=== PATIENT | female | born 1940 | race Hispanic/Latino ===

== ENCOUNTER 2022-04-02 18:16 | Emergency (ER) | payer OTHER ==
--- OUTSIDE RECORDS SUMMARY | 2022-04-02 18:22 | XMS REPORT | Continuity of Care Document ---
:1940 [facility] Organization [facility] t Address [address] [place] [address] Care Team Providers Name Role Phone Chelsey Attending Clinician Unavailable Alberto OSPINA Attending Clinician Unavailable Chance Attending Clinician Unavailable BRYN CHOE Attending Clinician Unavailable DONNA Attending Clinician Unavailable Chelsey Admitting Clinician Unavailable SONIYA STAHL Admitting Clinician Unavailable Chance Admitting Clinician Unavailable JOVANI ROGEL Admitting Clinician Unavailable YOKO FOX Admitting Clinician Unavailable DONNA Admitting Clinician Unavailable Payers Payer Name Policy Type Policy Number Effective Date Expiration Date Kevin oswald [place]: [id number] 1994 [employer] 00:00:00 [place]: [id number] 1994 [employer] 00:00:00 - RHC - FQHC Problems Condition Condition Condition Status Onset Resolution Last Treating Co mments Source Name Details Category Date Date Treatment Clinician Date Eye Eye Problem Active 2019-0 [place] disorder Disorder 6-23 da screening Screening 00:00: [facility] 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 [facility] Diabetes Diabetes Problem Active 2019-0 [place] [facility] mellitus Mellitus 6-18 da 00:[facility]: [facility] Hyperlipid Hyperlipid Problem Active 2019-0 M [facility] emia emia 6-18 da 00:00: [facility] Regular Regular Problem Active 2019-0 [place] astigmatis Astigmatis 6-18 da m m 00:00: [facility] Presbyopia Presbyopia Problem Active 2019-0 M [facility] 6-18 da 00:00: [facility] Essential Essential Problem Active 2019-0 [facility] hypertensi Hypertensi 6-18 da on on 00:00: [facility] Heart Heart Problem Active 2019-0 [place] disease Disease 6-18 da 00:00: [facility] 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 Pseudophak 6-18 da ia ia 00:00: [facility] Allergies, Adverse Reactions, Alerts Allergy Allergy Status Severity Reaction(s) Onset Inactive Treating Comm ents Source Name Type Date Date Clinician IODINATE Allergy Active [place] to da CONTRAST substanc Medica l MEDIA e Group Social History Smoking Status Start Date Stop Date Source Former [facility] Medications Ordered Filled Start Stop Current Ordering Indication Dosage Frequency Signature Comments Components Source Medication Medication Date Date Medication? Clinician (SIG) Name Name amlodipine amlodipine No amlodipine [place] 2.5 mg 2.5 mg 2.5 mg da tablet tablet tablet [facility] atorvastati atorvastati No atorvastat [place] n 40 mg n 40 mg in 40 mg da tablet tablet tablet [facility] ezetimibe ezetimibe No ezetimibe [place] 10 mg 10 mg 10 mg da tablet tablet tablet [facility] furosemide furosemide No furosemide [place] 40 mg 40 mg 40 mg da tablet tablet tablet [facility] isosorbide isosorbide No isosorbide [place] mononitrate mononitrate mononitrat da er 60 mg er 60 mg e er 60 mg E piscop tb24 tb24 tb24 [facility] losartan losartan No losartan [place] 100 100 100 da mg-hydrochl mg-hydrochl mg-hydroch [facility] orothiazide orothiazide lorothiazi al 25 mg 25 mg de 25 mg Health tablet tablet tablet Outreac h Program metformin metformin No metformin [place] hydrochlori hydrochlori hydrochlor da de 500 mg de 500 mg sudeep 500 mg [facility] tabs tabs tabs [facility] metoprolol metoprolol No metoprolol [place] tartrate 50 tartrate 50 tartrate da mg tablet mg tablet 50 mg [facility] 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 tablet [facility] nitroglycer nitroglycer No nitroglyce [place] in 0.4 mg in 0.4 mg rin 0.4 mg da subl subl subl [facility] pioglitazon pioglitazon No pioglitazo [place] e hcl 45 mg e hcl 45 mg ne hcl 45 da tabs tabs mg tabs [facility] proair hfa proair hfa No proair hfa [place] 108 (90 108 (90 108 (90 da base) base) base) [facility] mcg/act mcg/act mcg/act al [facility] aspirin 81 aspirin 81 No 1 Q1D aspirin 81 [place] mg mg mg da tablet,myla tablet,myla tablet,del Medical yed release yed release ayed G roup Take 1 Take 1 release tablet tablet Take 1 every day every day tablet by oral by oral every day route. route. by oral route. atorvastati atorvastati No atorvastat [place] n 40 mg n 40 mg in 40 mg da tablet TAKE tablet TAKE tablet Medical 1 TABLET BY 1 TABLET BY TAKE 1 Group MOUTH EVERY MOUTH EVERY TABLET BY DAY NEEDS DAY NEEDS MOUTH TO SEE TO SEE EVERY DAY DOCTOR DOCTOR NEEDS TO SEE DOCTOR baclofen 10 baclofen 10 No baclofen [place] mg tablet mg tablet 10 mg da TAKE 1 TAKE 1 tablet Medical TABLET TABLET TAKE 1 Group TWICE A DAY TWICE A DAY TABLET BY ORAL BY ORAL TWICE A ROUTE ROUTE DAY BY NEEDED. NEEDED. ORAL ROUTE NEEDED. cranberry cranberry No cranberry [place] 500 mg 500 mg 500 mg da capsule capsule capsule Medica l Take by Take by Take by Group oral route. oral route. oral route. Dialyvite Dialyvite No Dialyvite [place] 100 mg-1 mg 100 mg-1 mg 100 mg-1 da tablet TAKE tablet TAKE mg tablet Medical 1 TABLET BY 1 TABLET BY TAKE 1 Group MOUTH EVERY MOUTH EVERY TABLET BY DAY DAY MOUTH EVERY DAY Eliquis 5 Eliquis 5 No Eliquis 5 [place] mg tablet mg tablet mg tablet da TAKE 1 TAKE 1 TAKE 1 Medical TABLET BY TABLET BY TABLET BY Group MOUTH EVERY MOUTH EVERY MOUTH 12 HOURS 12 HOURS EVERY 12 HOURS ezetimibe ezetimibe No ezetimibe [place] 10 mg 10 mg 10 mg da tablet TAKE tablet TAKE tablet Medical 1 TABLET BY 1 TABLET BY TAKE 1 Group MOUTH EVERY MOUTH EVERY TABLET BY DAY DAY MOUTH EVERY DAY furosemide furosemide No furosemide [place] 40 mg 40 mg 40 mg da tablet TAKE tablet TAKE tablet Medical 2 TABLETS 2 TABLETS TAKE 2 Ramon up BY MOUTH BY MOUTH TABLETS BY EVERY DAY EVERY DAY MOUTH EVERY DAY glimepiride glimepiride No glimepirid [place] 1 mg tablet 1 mg tablet e 1 mg da TAKE 1 TAKE 1 tablet Medical TABLET BY TABLET BY TAKE 1 Ramon up MOUTH EVERY MOUTH EVERY TABLET BY DAY DAY MOUTH EVERY DAY isosorbide isosorbide No isosorbide [place] mononitrate mononitrate mononitrat da ER 60 mg ER 60 mg e ER 60 mg M edical tablet,exte tablet,exte tablet,ext Group nded nded ended release 24 release 24 release 24 hr TAKE 1 hr TAKE 1 hr TAKE 1 TABLET BY TABLET BY TABLET BY MOUTH EVERY MOUTH EVERY MOUTH DAY DAY EVERY DAY warfarin 1 warfarin 1 No warfarin 1 [place] mg tablet mg tablet mg tablet da [facility] Januvia 50 Januvia 50 No Januvia 50 [place] mg tablet mg tablet mg tablet da TAKE 1 TAKE 1 TAKE 1 Medical TABLET BY TABLET BY TABLET BY Group MOUTH EVERY MOUTH EVERY MOUTH DAY DAY EVERY DAY losartan 25 losartan 25 No losartan [place] mg tablet mg tablet 25 mg da TAKE 1 TAKE 1 tablet Medical TABLET BY TABLET BY TAKE 1 Ramon up MOUTH EVERY MOUTH EVERY TABLET BY DAY DAY MOUTH EVERY DAY metoprolol metoprolol No metoprolol [place] tartrate tartrate tartrate da 100 mg 100 mg 100 mg Medical tablet TAKE tablet TAKE tablet Group 1 TABLET BY 1 TABLET BY TAKE 1 MOUTH TWICE MOUTH TWICE TABLET BY A DAY A DAY MOUTH TWICE A DAY nifedipine nifedipine No nifedipine [place] ER 30 mg ER 30 mg ER 30 mg da tablet,exte tablet,exte tablet,ext Medical nded nded ended Group release release release TAKE 1 TAKE 1 TAKE 1 TABLET BY TABLET BY TABLET BY MOUTH EVERY MOUTH EVERY MOUTH DAY DAY EVERY DAY nitroglycer nitroglycer No nitroglyce [place] in 0.4 mg in 0.4 mg rin 0.4 mg da sublingual sublingual sublingual Medical tablet tablet tablet Group Place [address] 1 tablet by tablet by tablet by sublingual sublingual sublingual route as route as route as needed. needed. needed. spironolact spironolact No spironolac [place] one 25 mg one 25 mg tone 25 mg da tablet TAKE tablet TAKE tablet Medical 1 TABLET BY 1 TABLET BY TAKE 1 Group MOUTH EVERY MOUTH EVERY TABLET BY DAY DAY MOUTH EVERY DAY Voltaren Voltaren No Voltaren [facility] Arthritis Arthritis Arthritis da [facility] warfarin 3 warfarin 3 No warfarin 3 [place] mg tablet mg tablet mg tablet da [facility] Immunizations Ordered Immunization Filled Immunization Date Status Commen ts Source Name Name influenza, influenza, 2021-02-08 Completed [facility] injectable, injectable, 00:00:00 [facility] Gr[facility] p quadrivalent quadrivalent influenza, influenza, 2020-02-16 Completed [facility] injectable, injectable, 00:00:00 Medical Grou p quadrivalent quadrivalent influenza, high dose influenza, high 2018-06-03 Completed [facility] seasonal dose seasonal 12:57:00 Medical [place] up Vital Signs Vital Name Observation Time Observation Value Comments Source BP Diastolic 2021-12-19 00:00:00 78 mm[Hg] [facility] Height 2021-12-19 00:00:00 61 [in_i] [facility] BMI (Body Mass 2021-12-19 00:00:00 28.9 kg/m2 [facility] Index) Group BP Systolic 2021-12-19 00:00:00 159 mm[Hg] [facility] Body Weight 2021-12-19 00:00:00 2449 [oz_av] [facility] BP Diastolic 2021-11-27 00:00:00 64 mm[Hg] [facility] Height 2021-11-27 00:00:00 61 [in_i] [facility] BMI (Body Mass 2021-11-27 00:00:00 28.4 kg/m2 [facility]) Group BP Systolic 2021-11-27 00:00:00 138 mm[Hg] [facility] Body Weight 2021-11-27 00:00:00 2408 [oz_av] [facility] BP Diastolic 2021-11-12 00:00:00 69 mm[Hg] [facility] Height 2021-11-12 00:00:00 61 [in_i] [facility] BMI (Body Mass 2021-11-12 00:00:00 28.3 kg/m2 [facility]) Group BP Systolic 2021-11-12 00:00:00 173 mm[Hg] [facility] Body Weight 2021-11-12 00:00:00 2400 [oz_av] [facility] BP Diastolic 2021-05-08 00:00:00 66 mm[Hg] [facility] Height 2021-05-08 00:00:00 61 [in_i] [facility] BMI (Body Mass 2021-05-08 00:00:00 28.4 kg/m2 [facility]) Group BP Systolic 2021-05-08 00:00:00 170 mm[Hg] [facility] Body Weight 2021-05-08 00:00:00 2407 [oz_av] [facility] BP Diastolic 2020-11-14 00:00:00 70 mm[Hg] [facility] Height 2020-11-14 00:00:00 61 [in_i] [facility] BMI (Body Mass 2020-11-14 00:00:00 27.3 kg/m2 [facility]) Group BP Systolic 2020-11-14 00:00:00 159 mm[Hg] [facility] Body Weight 2020-11-14 00:00:00 2313 [oz_av] [facility] Height 2020-10-09 00:00:00 61 [in_i] [facility] BMI (Body Mass 2020-10-09 00:00:00 27.1 kg/m2 [facility]) Group BP Systolic 2020-10-09 00:00:00 132 mm[Hg] [facility] Body Weight 2020-10-09 00:00:00 2292 [oz_av] [facility] BP Diastolic 2020-10-09 00:00:00 66 mm[Hg] [facility] BP Diastolic 2020-09-06 00:00:00 59 mm[Hg] [facility] Height 2020-09-06 00:00:00 61 [in_i] [facility] BMI (Body Mass 2020-09-06 00:00:00 28.5 kg/m2 [facility]) Group BP Systolic 2020-09-06 00:00:00 140 mm[Hg] [facility] Body Weight 2020-09-06 00:00:00 2417 [oz_av] [facility] BP Diastolic 2020 00:00:00 74 mm[Hg] [facility] Height 2020 00:00:00 61 [in_i] [facility] BMI (Body Mass 2020 00:00:00 28.4 kg/m2 [facility]) Group BP Systolic 2020 00:00:00 136 mm[Hg] [facility] Body Weight 2020 00:00:00 2403 [oz_av] [facility] BP Diastolic 2020-05-07 00:00:00 79 mm[Hg] [facility] Height 2020-05-07 00:00:00 61 [in_i] [facility] BMI (Body Mass 2020-05-07 00:00:00 28.4 kg/m2 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 BP Systolic 2020-05-07 00:00:00 177 mm[Hg] [facility] Body Weight 2020-05-07 00:00:00 2406 [oz_av] [facility] Height 2020-04-12 00:00:00 61 [in_i] [facility] BMI (Body Mass 2020-04-12 00:00:00 28 kg/m2 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 Body Weight 2020-04-12 00:00:00 2368 [oz_av] [facility] Height 2020-02-23 00:00:00 61 [in_i] [facility] BMI (Body Mass 2020-02-23 00:00:00 27.6 kg/m2 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 Body Weight 2020-02-23 00:00:00 2336 [oz_av] [facility] Height 2020-01-24 00:00:00 61 [in_i] [facility] BMI (Body Mass 2020-01-24 00:00:00 31.2 kg/m2 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 Body Weight 2020-01-24 00:00:00 2640 [oz_av] [facility] Height 2019-12-15 00:00:00 61 [in_i] [facility] BMI (Body Mass 2019-12-15 00:00:00 31.2 kg/m2 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 Body Weight 2019-12-15 00:00:00 2640 [oz_av] [facility] Height 2019-11-01 00:00:00 61 [in_i] [facility] BMI (Body Mass 2019-11-01 00:00:00 31.2 kg/m2 [facility] Body Weight 2019-11-01 00:00:00 165 [lb_av] [facility] BP Diastolic 2018-11-16 00:00:00 71 mm[Hg] [facility] Height 2018-11-16 00:00:00 62 [in_i] [facility] BMI (Body Mass 2018-11-16 00:00:00 29.4 kg/m2 [facility] 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) Group BP Systolic 2018-11-16 00:00:00 144 mm[Hg] [facility] Body Weight 2018-11-16 00:00:00 2576 [oz_av] [facility] BP Diastolic 2018-10-26 00:00:00 60 mm[Hg] [facility] Height 2018-10-26 00:00:00 62 [in_i] [facility] BMI (Body Mass 2018-10-26 00:00:00 29.1 kg/m2 [facility] Index) Group BP Systolic 2018-10-26 00:00:00 149 mm[Hg] [facility] Body Weight 2018-10-26 00:00:00 2544 [oz_av] [facility] BP Diastolic 2018-08-17 00:00:00 86 mm[Hg] [facility] Height 2018-08-17 00:00:00 62 [in_i] [facility] BMI (Body Mass 2018-08-17 00:00:00 30.1 kg/m2 [facility] 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) Group BP Systolic 2018-08-17 00:00:00 173 mm[Hg] [facility] Body Weight 2018-08-17 00:00:00 2633 [oz_av] [facility] BP Diastolic 2018-06-03 00:00:00 78 mm[Hg] [facility] Height 2018-06-03 00:00:00 62 [in_i] [facility] BMI (Body Mass 2018-06-03 00:00:00 29.5 kg/m2 [facility] Index) Group BP Systolic 2018-06-03 00:00:00 146 mm[Hg] [facility] Body Weight 2018-06-03 00:00:00 2580 [oz_av] [facility] Procedures Procedure Date / Time Performing Clinician Source Performed Procedure 2020-03-11 00:00:00 [facility], chest 2018-08-17 00:00:00 [facility] Cardiac [facility] Procedure [facility] Partial Hysterectomy [facility] Bilateral Extraction of [facility] Cholecystectomy [facility] Femoral Endarterectomy [facility] Carotid Endarterectomy [facility] Cabg Vein Four [facility] Plan of Care Planned Activity Planned Date Details Comments Source Future Scheduled Test 2022-04-10 hemoglobin A1c, QN, [facility] 00:00:00 blood [code = Group hemoglobin A1c, QN, blood] Future Scheduled Test 2022-04-10 CMP, serum or plasma [facility] 00:00:00 [code = CMP, serum Group or plasma] Future Scheduled Test 2022-04-10 lipid panel, serum [facility] 00:00:00 [code = lipid panel, Group serum] Future Appointment 2022-04-21 Trice Kauffman [address] [facility] 09:30:00 [facility] [address]; , [place] [address] Encounters Start End Encounter Admission Attending Care Care Encounter Source Date/Time Date/Time Type Type Clinicians Facility Department ID 2022-03-30 2022-03-30 Outpatient Zuniga_F [facility] [id number] [facility] 00:00:00 00:00:00 1120 [facility] 2022-02-22 2022-02-22 Outpatient [facility]_F [facility] [id number] [place] 00:00:00 00:00:00 1015 [facility] 2022-01-18 2022-01-18 Outpatient [facility]_F [facility] [id number] [place] 00:00:00 00:00:00 0910 [facility] 2021-12-19 2021-12-19 Tr[place] Zuniga_F MMG [place] - [id number] [place] 00:00:00 00:00:00 Juan Carlos Rodriguez 0811 Bekah Denney MD: [address] [place] [phone] , Ph. 2021-12-18 2021-12-18 Outpatient [facility]iga_F [facility] [id number] [place] 00:00:00 00:00:00 0810 da [facility] 2021-12-11 2021-12-11 Outpatient Zuniga_F MM[facility] MM[facility] [id number] [place] 00:00:00 00:00:00 0803 nir [facility] 2021-11-27 2021-11-27 Tr[place] Zuniga_[place] MM[place] - [id number] [place] 00:00:00 00:00:00 Juan Carlos Rodriguez 0720 Bekah Denney MD: [address] [place] [phone] , Ph. 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 2021-05-08 2021-05-08 Trice Zuniga_F MMG [place] - [id number] 21 [place] 00:00:00 00:00:00 Juan Carlos Rodriguez 1229 Bekah Denney MD: [address] [place] [phone] , Ph. 2021-02-14 2021-02-14 Outpatient [facility]_F [facility] [id number] [place] 03:26:00 03:26:00 1007 nir [facility] 2020-11-142020-11-14 Tr[place] Zuniga_[place] MMG [place] - [id number] [place] 00:00:00 00:00:00 Juan Carlos Rodriguez 0707 Bekah Denney Medical MD: [address] [place] [address] [address], [place] [address] , Ph. 2020-10-09 2020-10-09 Trice Lamaruniga_F MM[place] - [id number] 21 [place] 00:00:00 00:00:00 Juan Carlos Rodriguez 06 Bekah Denney Medical MD: [address] [place] [address] [address], [place] [address] , Ph. 2020-09-18 2020-09-23 Inpatient DENIS [facility] MED [id number] [facility] 00:54:00 15:48:00 Alberto SANTIZO 2020-09-17 2020-09-17 Outpatient Shield MMG MMG [id number] [place] 11:42:00 11:42:00 0510 [facility] 2020-09-06 2020-09-06 Trice Zuniga_F MMG [place] - [id number] [place] 00:00:00 00:00:00 Juan Carlos Rodriguez 0429 Bekah Denney MD: [address] [place] [address] [address], [place] [address] , Ph. 2020-08-21 2020-08-24 Inpatient E SILVERIO [facility] MED [id number] [facility] 22:16:00 18:05:00 BRYN MENDOZA 2020-07-25 2020-07-25 Outpatient [facility]_F [facility] MMG [id number] [place] 03:45:00 03:45:00 0317 [facility] 2020 2020 Trice Zuniga_[place] MM[place] - [id number] [place] 00:00:00 00:00:00 Juan Carlos Rodriguez 0303 Bekah Denney MD: [address] [place] [address] [address], [place] [address] , Ph. 2020-06-07 2020-06-07 Outpatient [facility]iga_F [facility] MMG [id number] [place] 09:58:00 09:58:00 0128 [facility] 2020-05-07 2020-05-07 Tr[place] Zuniga_F MM[place] - [id number] 20 [place] 00:00:00 00:00:00 Juan Carlos Rodriguez 1228 Bekah Denney MD: [address] [facility] [address], [place] [address] , Ph. 2020-04-12 2020-04-12 Trice Zuniga_[place] MM[place] - [id number] 20 [place] 00:00:00 00:00:00 Juan Carlos Rodriguez 1203 Bekah Denney MD: [address] [address], [place] [address] , Ph. 2020-04-11 2020-04-11 Outpatient Zuniga_F [facility] MMG [id number] [place] 04:39:00 04:39:00 1202 [facility] 2020-03-28 2020-03-28 Outpatient Zuniga_F [facility] MM[facility] [id number] [place] 02:38:00 02:38:00 1118 [facility] 2020-03-22 2020-03-22 Outpatient Zuniga_F [facility] MMG [id number] [place] 01:05:00 01:05:00 1112 [facility] 2020-03-06 2020-03-06 Outpatient Zuniga_F [facility] MMG [id number] [place] 11:13:00 11:13:00 1027 [facility] 2020-02-23 2020-02-23 Trice Zuniga_F MM[place] - [id number] [place] 00:00:00 00:00:00 Juan Carlos Rodriguez 1015 Bekah Denney MD: [address] [address], [place] [address] , Ph. 2020-02-16 2020-02-16 Outpatient [facility]_F [facility] MMG [id number] [place] 01:05:00 01:05:00 1008 [facility] 2020-01-26 2020-01-26 Outpatient Z[facility]iga_F [facility] MMG [id number] [place] 04:46:00 04:46:00 0917 [facility] 2020-01-24 2020-01-24 Tr[place] Zuniga_[place] MM[place] - [id number] 20 [place] 00:00:00 00:00:00 Juan Carlos Rodriguez 0915 Bekah Denney Medical MD: [address] [place] [address] [address], [place] [address] , Ph. 2019-12-31 2020-01-14 Inpatient [facility] MED [id number] [facility] 22:32:00 14:35:00 BRYN MENDOZA 2020-01-07 2020-01-07 Outpatient [facility]_F [facility] MMG [id number] [place] 03:37:00 03:37:00 0829 [facility] 2019-12-15 2019-12-15 Tr[place] Zuniga_[place] - [id number] 20 [place] 00:00:00 00:00:00 Juan Carlos Rodriguez 0806 Bekah Denney MD: [address] [facility] [address], [place] [address] , Ph. 2019-12-13 2019-12-13 Outpatient Zuniga_F [facility] MMG [id number] [place] 03:48:00 03:48:00 0804 [facility] 2019-11-01 2019-11-01 Outpatient JORGE_NORA BLACK [id number] [place] 01:17:00 01:17:00 SCILLA 0623 da [facility] 2019-11-01 2019-11-01 Kelly BLACK [place] - [id number] [place] 00:00:00 00:00:00 Luisito Somers MD: [address], [facility] [place], [place] [facility] [address] [facility] , Ph. h ([phone]) Program 2019-10-27 2019-10-27 Outpatient [facility] [id number] [place] 04:54:00 04:54:00 SCILLA 0618 [facility] 2018-11-16 2018-11-16 Tr[place] [facility] [place] - [id number] [place] 00:00:00 00:00:00 Juan Carlos Rodriguez 0709 Bekah Denney Medical MD: [address] [place] [address] [address], [place] [address] , Ph. 2018-10-26 2018-10-26 Tr[place] [facility] [place] - [id number] 9 [place] 00:00:00 00:00:00 Juan Carlos Rodriguez 0618 Bekah Denney MD: [address] [place] [address] [address], [place] [address] , Ph. 2018-08-17 2018-08-17 Tr[place] [facility] [place] - [id number] 9 [place] 00:00:00 00:00:00 Juan Carlos Rodriguez 0409 Bekah Denney MD: [address] [facility] [address], [place] [address] , Ph. 2018-06-03 2018-06-03 Trice [facility] [place] - [id number] 9 [place] 00:00:00 00:00:00 Juan Carlos Rodriguez 0124 Bekah Denney MD: [address] [place] [address] [address], [place] [address] , Ph. Results Test Description Test Time Test Comments Results Result Comments Source Creatine kinase [Enzymatic activity/volume] in Serum o r Plasma 2020-09-17 11:00:00 Test Item Value Reference Range Interpretation Comme nts creatine kinase (test code = creatine kinase) 100 U/L 20-180 [facility]Mass/volume] in [id number] 11:00:00 Test Item Value Reference Range Interpretation Comments cardiac troponin I (test code = 1.34 NG/mL 0.0-0.5 H cardiac troponin I) [facility] [Mass/volume] in Serum or Plasma 2020-09-17 11:00:00 Test Item Value Reference Range Interpretation Comments Creatine kinase.MB [Mass/volume] in 7.5 NG/mL 0.0-3.6 H Serum or Plasma by Immunoassay (test code = 32817-3) [facility] [Mass/volume] in Serum or [id number] 11:00:00 Test Item Value Reference Range Interpretation Comments myoglobin (test code = myoglobin) 124 NG/mL 25-58 [facility] RNA [Presence] in Respiratory specimen by JESSICA with probe [id number] 10:52:[id number] [facility] Differential panel - [id number] 08:49:00 Test Item Value Reference Range Interpretation Comments white blood count (test code = 10.5 K/uL 4.0-11.5 white blood count) red blood count (test code = red 3.84 M/uL 3.80-5.20 blood count) hemoglobin (test code = 11.5 g/dL 10.5-15.7 hemoglobin) hematocrit (test code = 35.2 % 34.0-50.0 hematocrit) MCV [Entitic volume] (test code = 91.7 fL 86-100 42653-5) mean corpuscular hemoglobin (test 29.9 pg 26.2-33.4 code = mean corpuscular hemoglobin) mean corpuscular HGB conc (test 32.7 g/dL 30-34 code = mean corpuscular HGB conc) red cell distribution width (test 13.0 % 12.0-15.5 code = red cell distribution width) platelet count (test code = 108 K/uL 165-450 L platelet count) mean platelet volume (test code = 12.3 fL 9.4-12.6 mean platelet volume) Segmented neutrophils/100 83.1 % 44.4-80.1 H leukocytes in Blood (test code = 80350-7) Immature granulocytes [#/volume] 0.1 K/uL 0.0-0.03 H in Blood (test code = 17607-8) lymphocyte% (test code = 7.2 % 10.0-50.0 L lymphocyte%) mono % (test code = mono %) 8.7 % 3.6-12.0 eos % (test code = eos %) 0.2 % 0.0-5.4 Basophils/100 leukocytes in 0.2 % 0.1-1.2 Unspecified specimen (test code = 14779-8) Band form neutrophils [#/volume] 8.72 K/uL 1.56-6.13 H in Blood (test code = 22425-6) Lymphocytes [#/volume] in 0.8 K/uL 1.18-3.74 L Unspecified specimen by Automated count (test code = 71918-6) mono # (test code = mono #) 0.91 K/uL 0.24-0.86 H eos # (test code = eos #) 0.02 K/uL 0.04-0.36 L basophil # (test code = basophil 0.02 K/uL 0.01-0.08 #) NRBC% (test code = NRBC%) 0 /100 WBC 0-0.2 NRBC# (test code = NRBC#) 0 K/uL [facility], method unspecified - [id number] 08:49:00NeutrophilsBandLymphocyteAtypical LymphMonocyteEosinophilBasophilMetamyelocyteMyelocytePromyelocyteBlastsNucleated Red Blood CellAbs Neutrophil Count (Man)Abs Lymph Count (Man)Abs Monocyte Count (Man)Abs Eosinophil Count (Man)Abs Basophil Count (Man)Platelet Estimate [facility]PT/[id number] 08:49:00 Test Item Value Reference Range Interpretation Comments prothrombin time (test code = 12.5 seconds 10.3-12.3 H prothrombin time) INR in Blood by Coagulation 1.18 assay (test code = 87386-1) [facility] [id number] 08:49:00 Test Item Value Reference Range Interpretation Comments INR in Blood by Coagulation 35.5 seconds 22.5-37.0 assay (test code = 24832-2) [facility]Com[facility] 2000 [facility] - Serum or Plasma 2020-09-17 08:49:00 Test Item Value Reference Range Interpretation Comments Glucose [Mass/volume] in Serum or 199 mg/dL 82-115 H Plasma (test code = 2345-7) Urea nitrogen [Mass/volume] in 62 mg/dL 8-23 H Serum or Plasma (test code = 3094-0) osmolality calculated,serum (test 297 mOsm/kg 280-300 code = osmolality calculated,serum) creatinine (test code = 1.7 mg/dL 0.50-0.90 H creatinine) glomerular filtration rate (test 29.07 L code = glomerular filtration rate) Urea nitrogen/Creatinine [Mass 36.5 12-20 H Ratio] in Serum or Plasma (test code = 3097-3) sodium level (test code = sodium 137 mmol/L 135-145 level) potassium level (test code = 3.8 mmol/L 3.5-5.2 potassium level) chloride level (test code = 100 mmol/L 98-108 chloride level) CO2 (test code = CO2) 25 mmol/L 21-32 anion gap (test code = anion gap) 15.8 mEq/L 12-20 calcium level (test code = 9.6 mg/dL 8.8-10.2 calcium level) total protein (test code = total 7.5 g/dL 6.6-8.7 protein) albumin (test code = albumin) 4.2 g/dL 3.5-5.2 globulin (test code = globulin) 3.3 gm/dL A/G ratio (test code = A/G ratio) 1.3 >1.0 bilirubin,total (test code = 1.8 mg/dL 0.0-1.2 H bilirubin,total) AST/SGOT (test code = AST/SGOT) 50 U/L 15-32 H Alanine aminotransferase 36 U/L 0-33 H [Enzymatic activity/volume] in Serum or Plasma (test code = 1742-6) Alkaline phosphatase [Enzymatic 120 U/L 35-105 H activity/volume] in Serum or Plasma (test code = 6768-6) [facility] HospitalCreatine kinase [Enzymatic activity/volume] in Serum or [id number] 08:49:00 Test Item Value Reference Range Interpretation Comments creatine kinase (test code = creatine 120 U/L 20-180 kinase) [facility] HospitalNatriuretic peptide.B prohormone N-Terminal [Mass/volume] in Serum or [id number] 08:49:00 Test Item Value Reference Range Interpretation Comments N-term pro natriuretic peptide 09386 pg/mL 0-450 H (test code = N-term pro natriuretic peptide) [facility] HospitalTroponin I.cardiac [Mass/volume] in [id number] 08:49:00 Test Item Value Reference Range Interpretation Comments cardiac troponin I (test code = 0.87 NG/mL 0.0-0.5 H cardiac troponin I) [facility] HospitalCreatine kinase.MB [Mass/volume] in Serum or Plasma 2020-09-17 08:49:00 Test Item Value Reference Range Interpretation Comments Creatine kinase.MB [Mass/volume] in 6.7 NG/mL 0.0-3.6 H Serum or Plasma by Immunoassay (test code = 63717-5) [facility] [employer] Differential panel - [id number] 06:10:00 Test Item Value Reference Range Interpretation Comments white blood count (test code = 5.0 K/uL 4.0-11.5 white blood count) red blood count (test code = red 3.98 M/uL 3.80-5.20 blood count) Hemoglobin [Mass/volume] in Blood 11.8 g/dL 10.5-15.7 (test code = 718-7) hematocrit (test code = hematocrit) 37.2 % 34.0-50.0 Erythrocyte mean corpuscular volume 93.5 fL 78-98 [Entitic volume] (test code = 06916-6) Erythrocyte mean corpuscular 29.6 pg 26.2-33.4 hemoglobin [Entitic mass] (test code = 82468-6) mean corpuscular HGB conc (test 31.7 g/dL 31.5-36.2 code = mean corpuscular HGB conc) red cell distribution width (test 12.7 % 11.5-15.5 code = red cell distribution width) Platelets [#/volume] in Blood (test 119 K/uL 137-338 L code = 12795-3) Platelet mean volume [Entitic 10.4 fL 8.4-11.8 volume] in Blood (test code = 01043-2) Neutrophils.band form/100 54.7 % 44.4-80.1 leukocytes in Blood (test code = 84824-1) Lymphocytes/100 leukocytes in Body 32.1 % 10.0-50.0 fluid (test code = 77027-3) Monocytes/100 leukocytes in Blood 10.8 % 3.6-12.0 by Automated count (test code = 5905-5) Eosinophils/100 leukocytes in Blood 1.4 % 0.0-5.4 by Automated count (test code = 713-8) Basophils/100 leukocytes in 1.0 % 0.0-0.79 H Unspecified specimen (test code = 51603-0) [facility], [id number] 06:10:00 NeutrophilsBandLymphocyteAtypical LymphMonocyteMetamyelocyteMyelocyteNucleated Red Blood CellPlatelet EstimatePlatelet MorphologyHypochromasiaPoikilocytosis [facility] HospitalHemoglobin A1c [Mass/volume] in [id number] 06:10:00 Test Item Value Reference Range Interpretation Comments Hemoglobin A1c in Blood (test code = 8.3 % 4.0-6.0 H 16919-0) [facility]Com[facility] 2000 panel - Serum or Plasma 2018-10-29 06:10:00 Test Item Value Reference Range Interpretation Comments Glucose [Mass/volume] in Serum or 151 mg/dL 82-115 H Plasma (test code = 2345-7) Urea nitrogen [Mass/volume] in 46 mg/dL 8-23 H Serum or Plasma (test code = 3094-0) Osmolality of Serum or Plasma 294 280-300 (test code = 2692-2) creatinine (test code = 1.6 mg/dL 0.50-0.90 H creatinine) glomerular filtration rate (test 31.34 L code = glomerular filtration rate) Urea nitrogen/Creatinine [Mass 28.8 12-20 H Ratio] in Serum or Plasma (test code = 3097-3) sodium level (test code = sodium 140 mmol/L 135-145 level) potassium level (test code = 4.6 mmol/L 3.5-5.2 potassium level) chloride level (test code = 102 mmol/L 98-108 chloride level) CO2 (test code = CO2) 24 mmol/L 21-32 anion gap (test code = anion gap) 18.6 mEq/L 12-20 calcium level (test code = calcium 9.7 mg/dL 8.8-10.2 level) total protein (test code = total 6.9 g/dL 6.6-8.7 protein) albumin (test code = albumin) 4.1 g/dL 3.5-5.2 globulin (test code = globulin) 2.8 gm/dL A/G ratio (test code = A/G ratio) 1.5 >1.0 bilirubin,total (test code = <0.3 0.0-1.2 bilirubin,total) AST/SGOT (test code = AST/SGOT) 19 U/L 15-32 Alanine aminotransferase 12 U/L 0-33 [Enzymatic activity/volume] in Serum or Plasma (test code = 1742-6) Alkaline phosphatase [Enzymatic 78 U/L 35-105 activity/volume] in Serum or Plasma (test code = 6768-6) [facility] HospitalPhosphate [Mass/volume] in Serum or [id number] 06:10:00 Test Item Value Reference Range Interpretation Comments phosphorous level (test code = 4.7 mg/dL 2.5-4.5 H phosphorous level) [facility] HospitalLipid 1996 panel - Serum or [id number] 06:10:00 Test Item Value Reference Range Interpretation Comments cholesterol level (test code = 142 mg/dL 150-200 L cholesterol level) triglycerides level (test code = 112 mg/dL <150 triglycerides level) HDL cholesterol (test code = HDL 57 mg/dL >65 L cholesterol) LDL cholesterol direct (test code = 73 mg/dL <100 LDL cholesterol direct) cholesterol risk ratio (test code = 2.491 cholesterol risk ratio) [facility]PT/[id number] 06:10:00 Test Item Value Reference Range Interpretation Comments prothrombin time (test code = 17.6 seconds 10.3-12.3 H prothrombin time) INR in Blood by Coagulation 1.63 assay (test code = 05924-7) [facility] HospitalMicroalbumin [Mass/volume] in [id number] 06:10:00 Test Item Value Reference Range Interpretation Comments microalbumin random (test code = 854.3 mg/L 0-20 H microalbumin random) [facility] [employer] Differential panel - [id number] 01:36:00 Test Item Value Reference Range Interpretation Comments white blood count (test code = 7.4 K/uL 4.0-11.5 white blood count) red blood count (test code = red 3.66 M/uL 3.80-5.20 L blood count) Hemoglobin [Mass/volume] in Blood 10.9 g/dL 10.5-15.7 (test code = 718-7) hematocrit (test code = hematocrit) 33.9 % 34.0-50.0 L Erythrocyte mean corpuscular volume 92.6 fL 78-98 [Entitic volume] (test code = 17118-5) Erythrocyte mean corpuscular 29.9 pg 26.2-33.4 hemoglobin [Entitic mass] (test code = 33852-9) mean corpuscular HGB conc (test 32.3 g/dL 31.5-36.2 code = mean corpuscular HGB conc) red cell distribution width (test 12.7 % 11.5-15.5 code = red cell distribution width) Platelets [#/volume] in Blood (test 107 K/uL 137-338 L code = 90232-6) Platelet mean volume [Entitic 12.2 fL 8.4-11.8 H volume] in Blood (test code = 70340-1) Neutrophils.band form/100 74.7 % 44.4-80.1 leukocytes in Blood (test code = 84830-8) Lymphocytes/100 leukocytes in Body 14.6 % 10.0-50.0 fluid (test code = 97657-9) Monocytes/100 leukocytes in Blood 10.4 % 3.6-12.04 by Automated count (test code = 5905-5) Eosinophils/100 leukocytes in Blood 0.0 % 0.0-5.41 by Automated count (test code = 713-8) Basophils/100 leukocytes in Blood 0.3 % 0.0-0.79 by Automated count (test code = 706-2) [facility]different[facility], [id number] 01:36:00 NeutrophilsBandLymphocyteAtypical LymphMonocyteEosinophilBasophilPlatelet EstimatePlatelet MorphologyHypochromasiaPoikilocytosisMicrocytosisDifferential comment-PMaSouth Sunflower County HospitalPT/[id number] 01:36:00 Test Item Value Reference Range Interpretation Comments prothrombin time (test code = 19.8 seconds 10.3-12.3 H prothrombin time) INR in Blood by Coagulation 1.84 assay (test code = 69268-4) [facility] HospitalBasi metabolic 2000 panel - Serum or [id number] 01:36:00 Test Item Value Reference Range Interpretation Comments Glucose [Mass/volume] in Serum or 160 mg/dL 82-115 H Plasma (test code = 2345-7) Urea nitrogen [Mass/volume] in 45 mg/dL 8-23 H Serum or Plasma (test code = 3094-0) Osmolality of Serum or Plasma 295 280-300 (test code = 2692-2) creatinine (test code = 1.5 mg/dL 0.50-0.90 H creatinine) glomerular filtration rate (test 33.76 L code = glomerular filtration rate) Urea nitrogen/Creatinine [Mass 30.0 12-20 H Ratio] in Serum or Plasma (test code = 3097-3) sodium level (test code = sodium 140 mmol/L 135-145 level) potassium level (test code = 4.0 mmol/L 3.5-5.2 potassium level) chloride level (test code = 99 mmol/L 98-108 chloride level) CO2 (test code = CO2) 30 mmol/L 21-32 anion gap (test code = anion gap) 15.0 mEq/L 12-20 calcium level (test code = calcium 9.2 mg/dL 8.8-10.2 level) [facility]PT/[id number] 01:03:00 Test Item Value Reference Range Interpretation Comments prothrombin time (test code = 15.0 seconds 10.3-12.3 H prothrombin time) INR in Blood by Coagulation 1.38 assay (test code = 19882-4) [facility] HospitalCB [facility] Differential panel - [id number] 01:03:00 Test Item Value Reference Range Interpretation Comments white blood count (test code = 7.2 K/uL 4.0-11.5 white blood count) red blood count (test code = red 3.72 M/uL 3.80-5.20 L blood count) Hemoglobin [Mass/volume] in Blood 11.1 g/dL 10.5-15.7 (test code = 718-7) hematocrit (test code = hematocrit) 34.2 % 34.0-50.0 Erythrocyte mean corpuscular volume 92.0 fL 78-98 [Entitic volume] (test code = 89215-5) Erythrocyte mean corpuscular 30.0 pg 26.2-33.4 hemoglobin [Entitic mass] (test code = 62382-7) mean corpuscular HGB conc (test 32.6 g/dL 31.5-36.2 code = mean corpuscular HGB conc) red cell distribution width (test 13.1 % 11.5-15.5 code = red cell distribution width) Platelets [#/volume] in Blood (test 106 K/uL 137-338 L code = 00762-7) Platelet mean volume [Entitic 10.3 fL 8.4-11.8 volume] in Blood (test code = 23435-2) Neutrophils.band form/100 81.0 % 44.4-80.1 H leukocytes in Blood (test code = 69386-6) Lymphocytes/100 leukocytes in Body 11.3 % 10.0-50.0 fluid (test code = 65515-3) Monocytes/100 leukocytes in Blood 7.4 % 3.6-12.04 by Automated count (test code = 5905-5) Eosinophils/100 leukocytes in Blood 0.0 % 0.0-5.41 by Automated count (test code = 713-8) Basophils/100 leukocytes in Blood 0.3 % 0.0-0.79 by Automated count (test code = 706-2) [facility]different[facility], [id number] 01:03:00 NeutrophilsBandLymphocyteAtypical LymphMonocyteEosinophilBasophilPlatelet EstimatePlatelet MorphologyHypochromasiaPoikilocytosisMicrocytosisDifferential comment-[facility] metabolic 2000 panel - Serum or Plasma 2018-08-05 01:03:00 Test Item Value Reference Range Interpretation Comments Glucose [Mass/volume] in Serum or 167 mg/dL 82-115 H Plasma (test code = 2345-7) Urea nitrogen [Mass/volume] in 40 mg/dL 8-23 H Serum or Plasma (test code = 3094-0) Osmolality of Serum or Plasma 282 280-300 (test code = 2692-2) creatinine (test code = 1.5 mg/dL 0.50-0.90 H creatinine) glomerular filtration rate (test 33.76 L code = glomerular filtration rate) Urea nitrogen/Creatinine [Mass 26.7 12-20 H Ratio] in Serum or Plasma (test code = 3097-3) sodium level (test code = sodium 134 mmol/L 135-145 L level) potassium level (test code = 4.3 mmol/L 3.5-5.2 potassium level) chloride level (test code = 99 mmol/L 98-108 chloride level) CO2 (test code = CO2) 22 mmol/L 21-32 anion gap (test code = anion gap) 17.3 mEq/L 12-20 calcium level (test code = calcium 8.8 mg/dL 8.8-10.2 level) [facility] [employer] Differential panel - [id number] 02:00:00 Test Item Value Reference Range Interpretation Comments white blood count (test code = 3.8 K/uL 4.0-11.5 L white blood count) red blood count (test code = red 3.60 M/uL 3.80-5.20 L blood count) Hemoglobin [Mass/volume] in Blood 11.0 g/dL 10.5-15.7 (test code = 718-7) hematocrit (test code = hematocrit) 33.2 % 34.0-50.0 L Erythrocyte mean corpuscular volume 92.4 fL 78-98 [Entitic volume] (test code = 68625-7) Erythrocyte mean corpuscular 30.7 pg 26.2-33.4 hemoglobin [Entitic mass] (test code = 10211-0) mean corpuscular HGB conc (test 33.2 g/dL 31.5-36.2 code = mean corpuscular HGB conc) red cell distribution width (test 12.8 % 11.5-15.5 code = red cell distribution width) Platelets [#/volume] in Blood (test 91 K/uL 137-338 L code = 21414-8) Platelet mean volume [Entitic 10.6 fL 8.4-11.8 volume] in Blood (test code = 30931-3) Neutrophils.band form/100 82.5 % 44.4-80.1 H leukocytes in Blood (test code = 31118-0) Lymphocytes/100 leukocytes in Body 14.5 % 10.0-50.0 fluid (test code = 24348-2) Monocytes/100 leukocytes in Blood 2.7 % 3.6-12.04 L by Automated count (test code = 5905-5) Eosinophils/100 leukocytes in Blood 0.0 % 0.0-5.41 by Automated count (test code = 713-8) Basophils/100 leukocytes in Blood 0.3 % 0.0-0.79 by Automated count (test code = 706-2) [facility]different[facility], [id number] 02:00:00 NeutrophilsBandLymphocyteAtypical LymphMonocyteEosinophilBasophilPlatelet EstimatePlatelet MorphologyHypochromasiaPoikilocytosisMicrocytosisDifferential comment-PMataAnderson Regional Medical CenterPT/[id number] 02:00:00 Test Item Value Reference Range Interpretation Comments prothrombin time (test code = 13.0 seconds 10.3-12.3 H prothrombin time) INR in Blood by Coagulation 1.19 assay (test code = 47590-8) [facility] HospitalLactate [Mass/volume] in Serum or [id number] 02:00:00 Test Item Value Reference Range Interpretation Comments lactic acid (test code = lactic 1.15 mmol/L 0.5-2.2 acid) [facility] Hospitallprocal2019-03-27 02:00:00 Test Item Value Reference Range Interpretation Comments Procalcitonin [Mass/volume] in 0.1 NG/mL 0.0-0.8 Serum or Plasma (test code = 30784-0) [facility] HospitalNatriuretic peptide.B prohormone N-Terminal [Mass/volume] in Serum or [id number] 02:00:00 Test Item Value Reference Range Interpretation Comments N-term pro natriuretic peptide 5819 pg/mL 0-450 H (test code = N-term pro natriuretic peptide) [facility] HospitalBasic metabolic 2000 panel - Serum or [id number] 02:00:00 Test Item Value Reference Range Interpretation Comments Glucose [Mass/volume] in Serum or 238 mg/dL 82-115 H Plasma (test code = 2345-7) Urea nitrogen [Mass/volume] in 32 mg/dL 8-23 H Serum or Plasma (test code = 3094-0) Osmolality of Serum or Plasma 287 280-300 (test code = 2692-2) creatinine (test code = 1.3 mg/dL 0.50-0.90 H creatinine) glomerular filtration rate (test 39.82 L code = glomerular filtration rate) Urea nitrogen/Creatinine [Mass 24.6 12-20 H Ratio] in Serum or Plasma (test code = 3097-3) sodium level (test code = sodium 136 mmol/L 135-145 level) potassium level (test code = 3.9 mmol/L 3.5-5.2 potassium level) chloride level (test code = 97 mmol/L 98-108 L chloride level) CO2 (test code = CO2) 20 mmol/L 21-32 L anion gap (test code = anion gap) 22.9 mEq/L 12-20 H calcium level (test code = calcium 8.5 mg/dL 8.8-10.2 L level) [facility] HospitalBacteria identified in Sputum by [id number] 09:41:00ResultsBacteria Spt CultSelect Specialty Hospitallprocal2019-03-26 08:00:00 Test Item Value Reference Range Interpretation Comments Procalcitonin [Mass/volume] in 0.1 NG/mL 0.0-0.8 Serum or Plasma (test code = 60673-2) [facility] Hospitalmflu [id number] 06:05:00ResultsSelect Specialty HospitalCBC W Auto Differential panel - [id number] 05:55:00 Test Item Value Reference Range Interpretation Comments white blood count (test code = 5.0 K/uL 4.0-11.5 white blood count) red blood count (test code = red 4.15 M/uL 3.80-5.20 blood count) Hemoglobin [Mass/volume] in Blood 12.5 g/dL 10.5-15.7 (test code = 718-7) hematocrit (test code = hematocrit) 38.7 % 34.0-50.0 Erythrocyte mean corpuscular volume 93.1 fL 78-98 [Entitic volume] (test code = 23865-9) Erythrocyte mean corpuscular 30.2 pg 26.2-33.4 hemoglobin [Entitic mass] (test code = 23419-8) mean corpuscular HGB conc (test 32.4 g/dL 31.5-36.2 code = mean corpuscular HGB conc) red cell distribution width (test 13.1 % 11.5-15.5 code = red cell distribution width) Platelets [#/volume] in Blood (test 112 K/uL 137-338 L code = 65500-5) Platelet mean volume [Entitic 12.0 fL 8.4-11.8 H volume] in Blood (test code = 09301-4) Neutrophils.band form/100 72.9 % 44.4-80.1 leukocytes in Blood (test code = 33772-7) Lymphocytes/100 leukocytes in Body 16.0 % 10.0-50.0 fluid (test code = 69787-3) Monocytes/100 leukocytes in Blood 10.4 % 3.6-12.04 by Automated count (test code = 5905-5) Eosinophils/100 leukocytes in Blood 0.1 % 0.0-5.41 by Automated count (test code = 713-8) Basophils/100 leukocytes in Blood 0.6 % 0.0-0.79 by Automated count (test code = 706-2) [facility]different[facility], [id number] 05:55:00 NeutrophilsBandLymphocyteAtypical LymphMonocyteEosinophilBasophilPlatelet EstimatePlatelet MorphologyHypochromasiaPoikilocytosisMicrocytosisDifferential comment-PMatagorda Medical GroupUrinalysis complete panel - [id number] 05:55:00 Test Item Value Reference Range Interpretation Comments Color of Urine by Auto (test code yellow = 97202-4) Appearance of Urine (test code = clear clear 5767-9) Glucose [Mass/volume] in Urine =1+ (100 negative H (test code = 2350-7) bilirubin, urine (test code = negative negative bilirubin, urine) ketone, urine (test code = small, 15 negative H ketone, urine) Specific gravity of Urine by 1.025 1.003-1.030 Automated test strip (test code = 93800-8) Hemoglobin [Presence] in Urine by small negative H Test strip (test code = 5794-3) pH of Urine (test code = 2756-5) 7.000 5-9 protein urine (UA) (test code = =2+ (100 negative H protein urine (UA)) Urobilinogen [Presence] in Urine 1.0 E.U./dL 0.2-1.0 (test code = 39108-0) Nitrite [Presence] in Urine by negative negative Test strip (test code = 5802-4) urine leukocyte esterase (test negative negative code = urine leukocyte esterase) Erythrocytes [Presence] in Urine =0-3 0-5 (test code = 69498-2) WBC, urine (test code = WBC, =5-9 0-5 H urine) Epithelial cells [Presence] in =0-5 0-5 Urine sediment by Light microscopy (test code = 71070-0) bacteria, urine (test code = trace none detect bacteria, urine) Casts [#/area] in Urine sediment none seen none detect by Automated count (test code = 76503-3) urine culture added? (test code = no urine culture added?) [facility]Com[facility] 2000 [facility] - Serum or Plasma 2018-08-03 05:55:00 Test Item Value Reference Range Interpretation Comments glucose (test code = glucose) 202 mg/dL 82-115 H Urea nitrogen [Mass/volume] in 35 mg/dL 8-23 H Serum or Plasma (test code = 3094-0) Osmolality of Serum or Plasma 286 280-300 (test code = 2692-2) creatinine (test code = 1.5 mg/dL 0.50-0.90 H creatinine) glomerular filtration rate (test 33.76 L code = glomerular filtration rate) Urea nitrogen/Creatinine [Mass 23.3 12-20 H Ratio] in Serum or Plasma (test code = 3097-3) sodium level (test code = sodium 136 mmol/L 135-145 level) Potassium [Moles/volume] in Body 4.0 mmol/L 3.5-5.2 fluid (test code = 2821-7) chloride level (test code = 94 mmol/L 98-108 L chloride level) CO2 (test code = CO2) 27 mmol/L 21-32 anion gap (test code = anion gap) 19.0 mEq/L 12-20 calcium level (test code = calcium 9.4 mg/dL 8.8-10.2 level) total protein (test code = total 7.6 g/dL 6.6-8.7 protein) albumin (test code = albumin) 4.1 g/dL 3.5-5.2 globulin (test code = globulin) 3.5 gm/dL A/G ratio (test code = A/G ratio) 1.2 >1.0 bilirubin,total (test code = 0.7 mg/dL 0.0-1.2 bilirubin,total) AST/SGOT (test code = AST/SGOT) 28 U/L 15-32 Alanine aminotransferase 14 U/L 0-33 [Enzymatic activity/volume] in Serum or Plasma (test code = 1742-6) Alkaline phosphatase [Enzymatic 77 U/L 35-105 activity/volume] in Serum or Plasma (test code = 6768-6) [facility] HospitalLipase [Enzymatic activity/volume] in Serum or Plasma 2018-08-03 05:55:00 Test Item Value Reference Range Interpretation Comments Lipase [Enzymatic activity/volume] in 36 U/L 13-60 Serum or Plasma (test code = 3040-3) [facility] HospitalPT/[id number] 05:55:00 Test Item Value Reference Range Interpretation Comments prothrombin time (test code = 13.5 seconds 10.3-12.3 H prothrombin time) INR in Blood by Coagulation 1.24 assay (test code = 15020-6) [facility] Hospitalpartial thromboplastin [id number] 05:55:00 Test Item Value Reference Range Interpretation Comments INR in Blood by Coagulation 33.8 seconds 22.5-37.0 assay (test code = 69499-9) [facility] HospitalCreatine kinase [Enzymatic activity/volume] in Serum or [id number] 05:55:00 Test Item Value Reference Range Interpretation Comments creatine kinase (test code = creatine 88 U/L 20-180 kinase) [facility] HospitalTroponin I.cardiac [Mass/volume] in [id number] 05:55:00 Test Item Value Reference Range Interpretation Comments cardiac troponin I (test code = cardiac <0.30 0.0-0.5 troponin I) [facility] HospitalCreatine kinase.MB [Mass/volume] in Serum or Plasma 2018-08-03 05:55:00 Test Item Value Reference Range Interpretation Comments mass creatinine kinase-mb (test 1.5 NG/mL 0.0-3.6 code = mass creatinine kinase-mb) [facility] HospitalPT/[id number] 08:03:00 Test Item Value Reference Range Interpretation Comments prothrombin time (test code = 16.7 seconds 10.3-12.3 H prothrombin time) INR in Blood by Coagulation 1.54 assay (test code = 52128-9) [facility]
[2022-04-02] MEDS ORDERED: ASPIRIN 81 MG CHEWABLE TABLET ONE (18:58)
[2022-04-02] MEDS ORDERED: NITROGLYCERIN 0.4 MG/TAB SL ONE (18:58)
[2022-04-02 19:17] LABS: Absolute Lymphocytes (CBC) 1.5 K/uL (0.7-4.9); Lymphocytes % 22.3 % (15.3-44.8); MCV 89.8 fL (80-100); MPV 9.6 fL (7.6-11.3); RBC Red Blood Cell Count 3.34 M/uL (3.86-4.86)
[2022-04-02 19:38] LABS: Potassium 4.8 mmol/L (3.5-5.1)
--- NOTE | 2022-04-02 19:51 | RAD REPORT ---
EXAM DESCRIPTION: RAD - Chest Single View - 04/02/2022 7:37 pm CLINICAL HISTORY: CHEST PAIN COMPARISON: Chest Pa And Lat (2 Views) dated 01/25/2020 FINDINGS: Lines: Dialysis catheter is been removed. Lungs: Decreased lung volumes with increased prominence of the pulmonary vasculature. Pleural: No significant pleural effusions or pneumothorax. Cardiac: Cardiomegaly. Sternotomy. Mediastinum: Within normal limits. Bones: No acute fractures. Other: None IMPRESSION: Vascular congestion without alveolar edema. No consolidative airspace disease.
--- NOTE | 2022-04-02 19:52 | ER ---
Nurse's Notes [facility] Name: Myra Cox Age: 81 yrs Sex: Female : 1940 Arrival Date: 04/02/2022 Time: 18:18 Bed 16 Private MD: Diagnosis: Subsequent non-ST elevation (NSTEMI) myocardial infarction;Chest pain, unspecified Presentation: 04/02 18:30 Chief complaint: Patient states: Chest tightness since 03/21. Coronavirus screen: [facility] Vaccine status: Patient reports receiving the 2nd dose of the covid vaccine. Client denies travel out of the [place] in the last 14 days. At this time, the client does not indicate any symptoms associated with coronavirus-19. Ebola Screen: Patient denies travel to an Ebola-affected area in the 21 days before illness onset. Initial Sepsis Screen: Does the patient meet any 2 criteria? No. Patient's initial sepsis screen is negative. Does the patient have a suspected source of infection? No. Patient's initial sepsis screen is negative. Risk Assessment: Do you want to hurt yourself or someone else? Patient reports no desire to harm self or others. Onset of symptoms was March 21, 2022. 18:30 Method Of Arrival: Wheelchair ll1 18:30 Acuity: JAZMIN 2 ll1 Triage Assessment: 18:31 General: Appears uncomfortable, Behavior is cooperative, appropriate for age. Pain: 1 Complains of pain in chest Pain currently is 3 out of 10 on a pain scale. Cardiovascular: Reports chest pain, fatigue. Historical: - Allergies: 18:30 No Known Drug Allergies; ll1 - PMHx: 18:30 Hypertensive disorder; Coronary atherosclerosis; ll1 - PSHx: 18:30 3 open heart SX; ll1 - Immunization history:: Client reports receiving the 2nd dose of the Covid vaccine. - Social history:: Smoking status: Patient denies any tobacco usage or history of. - Family history:: not pertinent. Screenin:46 Abuse screen: Denies threats or abuse. Nutritional screening: No deficits noted. ke1 Tuberculosis screening: No symptoms or risk factors identified. Fall Risk None identified. Assessment: 19:46 Pain: Pain does not radiate. ke1 19:47 Pain: Pain began 03/21/22. ke1 21:16 Reassessment: Patient states feeling better. Patient states symptoms have improved. ke1 22:47 Reassessment: report given to ESTHER RN at [facility]. ke1 Vital Signs: 18:30 BP 162 / 75; Pulse 70; Resp 18; Pain 3/10; ll1 19:00 BP 155 / 59; Pulse 71; Resp 19; Temp 98; Pulse Ox 100% on R/A; ke1 19:05 Pain 8/10; ke1 19:05 BP 160 / 50; Pulse 68; Resp 18; Pulse Ox 100% ; ke1 19:10 Pain 2/10; ke1 19:10 BP 161 / 58; Pulse 68; Resp 17; Pulse Ox 100% on R/A; ke1 20:41 BP 158 / 123; Pulse 67; Resp 20; Pulse Ox 100% on R/A; ke1 21:17 BP 162 / 55; Pulse 67; Resp 18; Pulse Ox 100% on R/A; Pain 0/10; ke1 21:20 Weight 71.67 kg; Height 5 ft. 1 in. (154.94 cm); ke1 04/03 00:27 BP 140 / 52; Pulse 64; Resp 19; Temp 98.1; Pulse Ox 100% on R/A; Pain 0/10; ke1 04/02 21:20 Body Mass Index 29.85 (71.67 kg, 154.94 cm) ke1 ED Course: 04/02 18:18 Patient arrived in ED. mr 18:27 James Davis MD is Attending Physician. rt 18:30 Arm band placed on Patient placed in an exam room, on a stretcher. ll1 18:31 Triage completed. ll1 18:57 Inserted saline lock: 20 gauge in right antecubital area, using aseptic technique. jd3 Blood collected. 19:09 Kirsten Pinedo, RN is Primary Nurse. db 19:12 Attending Physician role handed off by James Davis MD rn 19:12 Tera Dickinson MD is Attending Physician. rn 19:39 XRAY Chest (1 view) In Process Unspecified. EDMS 19:46 Bed in low position. Call light in reach. Side rails up X 1. ke1 19:46 No provider procedures requiring assistance completed. Patient maintains SpO2 ke1 saturation greater than 95% on room air. 19:52 Gene Luciano MD is Hospitalizing Provider. rn 20:17 Initiated transfer to [facility], spoke with Khushi. 21:00 Client placed on continuous cardiac and pulse oximetry monitoring. NIBP monitoring ke1 applied. customer field representative on. Pulse ox on. NIBP on. 21:52 Pt accepted for transfer by Dr. Nathan Hunt \T\ 2141 per Khushi Bolton. wm 23:11 [facility] for transport, estimated ETA 0100. wm 23:15 [facility] called stated change of ETA to be 30mins. 04/03 00:29 Patient transferred, IV remains in place. ke1 Administered Medications: 04/02 19:00 Drug: Aspirin Chewable Tablet 324 mg Route: PO; kc6 19:00 Drug: Nitroglycerin 0.4 mg Route: Sublingual; db 19:05 Drug: Nitroglycerin 0.4 mg Route: Sublingual; ke1 19:05 Follow up: Pain 8/10 Adult; Response: Pain is unchanged, physician notified ke1 19:10 Drug: Nitroglycerin 0.4 mg Route: Sublingual; ke1 19:10 Follow up: Pain 2/10 Adult; Response: Pain is decreased ke1 20:46 Drug: Metoprolol TARTRATE 50 mg Route: PO; ke1 21:26 Drug: Lovenox (enoxaparin) 1 mg/kg Route: Sub-Q; Site: left lower abdomen; ke1 Medication: 04/03 00:29 VIS not applicable for this client. ke1 Outcome: 04/02 19:52 Decision to Hospitalize by Provider. rn 20:09 ER care complete, transfer ordered by . rn 04/03 00:28 Transferred by ground EMS ke1 Instructed on the need for admit. 00:29 Condition: stable ke1 00:30 Patient left the ED. ke1 Signatures: Dispatcher [employer] EDVA JiangKasey Roman, MD MD rn Martinez, Eric em1 Diony Kramer RN RN Heriberto Lemons RN RN Tri Tse Valencia Maciel RN RN ke1 Mariluz Kaur RN RN kc6 Kirsten Pinedo RN RN db [place], Ryan, MD MD rt Corrections: (The following items were deleted from the chart) 04/02 20:30 20:17 Initiated transfer to [facility], spoke with Khushi em1 wm
--- NOTE | 2022-04-02 19:52 | EDPHYS ---
Physician Documentation [facility] Name: Myra Cox Age: 81 yrs Sex: Female : 1940 Arrival Date: 04/02/2022 Time: 18:18 Bed 16 Private MD: ED Physician Tera Dickinson HPI: 04/02 19:07 This 81 yrs old Female presents to ER via Wheelchair with complaints of Chest rt Tightness, Back Pain. 19:07 The patient or guardian reports chest pain that is located primarily in the substernal rt area. Onset: 1 week(s) ago. The pain does not radiate. Associated signs and symptoms: Pertinent positives: Generalized weakness. The chest pain is described as squeezing. Duration: The patient or guardian reports multiple episodes, that wax and wane. Modifying factors: The symptoms are alleviated by nothing. the symptoms are aggravated by nothing. Severity of pain: At its worst the pain was moderate. Presents to the ED with an intermittent substernal chest pain. She has an associated weakness in her bilateral arms but denies radiation of the pain. The patient denies other associated symptoms, aggravating or alleviating factors. Patient told her family about the symptoms today which brought her in given her cardiac history. Denies other acute complaints at this time, symptoms are moderate severity, no other aggravating or alleviating factors.. Historical: - Allergies: 18:30 No Known Drug Allergies; ll1 - PMHx: 18:30 Hypertensive disorder; Coronary atherosclerosis; ll1 - PSHx: 18:30 3 open heart SX; ll1 - Immunization history:: Client reports receiving the 2nd dose of the Covid vaccine. - Social history:: Smoking status: Patient denies any tobacco usage or history of. - Family history:: not pertinent. ROS: 19:07 Constitutional: Negative for fever, chills, and weight loss, Eyes: Negative for injury, rt pain, redness, and discharge, ENT: Negative for injury, pain, and discharge, Neck: Negative for injury, pain, and swelling, Respiratory: Negative for shortness of breath, cough, wheezing, and pleuritic chest pain, Abdomen/GI: Negative for abdominal pain, nausea, vomiting, diarrhea, and constipation, Back: Negative for injury and pain, MS/Extremity: Negative for injury and deformity, Skin: Negative for injury, rash, and discoloration, Neuro: Negative for headache, weakness, numbness, tingling, and seizure, Psych: Negative for depression, anxiety, suicide ideation, homicidal ideation, and hallucinations. 19:07 Cardiovascular: Positive for chest pain, Negative for edema. Exam: 19:07 Constitutional: This is a well developed, well nourished patient who is awake, alert, rt and in no acute distress. Head/Face: Normocephalic, atraumatic. Eyes: Pupils equal round and reactive to light, extra-ocular motions intact. Lids and lashes normal. Conjunctiva and sclera are non-icteric and not injected. Cornea within normal limits. Periorbital areas with no swelling, redness, or edema. ENT: Nares patent. No nasal discharge, no septal abnormalities noted. Tympanic membranes are normal and external auditory canals are clear. Oropharynx with no redness, swelling, or masses, exudates, or evidence of obstruction, uvula midline. Mucous membranes moist. Neck: Trachea midline, no thyromegaly or masses palpated, and no cervical lymphadenopathy. Supple, full range of motion without nuchal rigidity, or vertebral point tenderness. No Meningismus. Chest/axilla: Normal chest wall appearance and motion. Nontender with no deformity. No lesions are appreciated. Cardiovascular: Regular rate and rhythm with a normal S1 and S2. No gallops, murmurs, or rubs. Normal PMI, no JVD. No pulse deficits. Respiratory: Lungs have equal breath sounds bilaterally, clear to auscultation and percussion. No rales, rhonchi or wheezes noted. No increased work of breathing, no retractions or nasal flaring. Abdomen/GI: Soft, non-tender, with normal bowel sounds. No distension or tympany. No guarding or rebound. No evidence of tenderness throughout. Skin: Warm, dry with normal turgor. Normal color with no rashes, no lesions, and no evidence of cellulitis. MS/ Extremity: Pulses equal, no cyanosis. Neurovascular intact. Full, normal range of motion. Neuro: Awake and alert, GCS 15, oriented to person, place, time, and situation. Cranial nerves II-XII grossly intact. Motor strength 5/5 in all extremities. Sensory grossly intact. Cerebellar exam normal. Normal gait. Psych: Awake, alert, with orientation to person, place and time. Behavior, mood, and affect are within normal limits. 19:07 ECG was reviewed by the Attending Physician. Vital Signs: 18:30 BP 162 / 75; Pulse 70; Resp 18; Pain 3/10; ll1 19:00 BP 155 / 59; Pulse 71; Resp 19; Temp 98; Pulse Ox 100% on R/A; ke1 19:05 Pain 8/10; ke1 19:05 BP 160 / 50; Pulse 68; Resp 18; Pulse Ox 100% ; ke1 19:10 Pain 2/10; ke1 19:10 BP 161 / 58; Pulse 68; Resp 17; Pulse Ox 100% on R/A; ke1 20:41 BP 158 / 123; Pulse 67; Resp 20; Pulse Ox 100% on R/A; ke1 21:17 BP 162 / 55; Pulse 67; Resp 18; Pulse Ox 100% on R/A; Pain 0/10; ke1 21:20 Weight 71.67 kg; Height 5 ft. 1 in. (154.94 cm); ke1 04/03 00:27 BP 140 / 52; Pulse 64; Resp 19; Temp 98.1; Pulse Ox 100% on R/A; Pain 0/10; ke1 04/02 21:20 Body Mass Index 29.85 (71.67 kg, 154.94 cm) [facility] MDM: 04/02 18:44 Patient medically screened. rt 19:50 Differential diagnosis: acute myocardial infarction, acute pericarditis, coronary rn artery disease chest wall pain, congestive heart failure costochondritis, pneumothorax, stable angina, unstable angina. HEART Score: History: Highly Suspicious (2), ECG: Non specific repolarization disturbance / LBTB / PM (1), Age: > or = 65 years (2), Risk Factors: > or = 3 Risk factors for atherosclerotic disease (2), Troponin: > 1 and < 3 x normal limit (1), Total Score = 8. The patient was given aspirin in the Emergency Department. Data reviewed: vital signs, nurses notes, lab test result(s), EKG, radiologic studies, plain films, and as a result, I will admit patient. Counseling: I had a detailed discussion with the patient and/or guardian regarding: the historical points, exam findings, and any diagnostic results supporting the discharge/admit diagnosis, lab results, radiology results, the need for further work-up and treatment in the hospital. Medical screen evaluation completed. EMTALA emergency medical condition absent. Response to treatment: the patient's symptoms have markedly improved after treatment, and as a result, I will admit patient. Admission orders: after a detailed discussion of the patient's condition and case, the admit orders are written by me. ED course: Pt reports pain resolved, will admit given history, HEART score 8, and elevated troponin. . 04/02 18:45 Order name: Basic Metabolic Panel; Complete Time: 19:48 rt 04/02 18:45 Order name: CBC with Diff; Complete Time: 19:40 rt 04/02 18:45 Order name: Troponin HS; Complete Time: 19:48 rt 04/02 18:45 Order name: XRAY Chest (1 view); Complete Time: 19:54 rt 04/02 20:25 Order name: SARS-COV-2 Antigen Rapid; Complete Time: 20:59 em1 04/02 18:45 Order name: EKG; Complete Time: 18:46 rt 04/02 18:45 Order name: Cardiac monitoring; Complete Time: 18:47 rt 04/02 18:45 Order name: EKG - Nurse/Tech; Complete Time: 18:47 rt 04/02 18:45 Order name: IV Saline Lock; Complete Time: 18:56 rt 04/02 18:45 Order name: Labs collected and sent; Complete Time: 18:56 rt 04/02 18:45 Order name: O2 Per Protocol; Complete Time: 18:47 rt 04/02 18:45 Order name: O2 Sat Monitoring; Complete Time: 18:47 rt EC:07 Rate is 67 beats/min. Rhythm is regular, 1st Degree Block with No ectopy. QRS Lynn is rt Normal. CT interval is normal. QRS interval is normal. QT interval is normal. No Q waves. ST Segment is depressed in leads V5, V6. Clinical impression: NSR w/ Non-specific ST/T Changes. Interpreted by me. Administered Medications: 19:00 Drug: Aspirin Chewable Tablet 324 mg Route: PO; kc6 19:00 Drug: Nitroglycerin 0.4 mg Route: Sublingual; db 19:05 Drug: Nitroglycerin 0.4 mg Route: Sublingual; ke1 19:05 Follow up: Pain 8/10 Adult; Response: Pain is unchanged, physician notified ke1 19:10 Drug: Nitroglycerin 0.4 mg Route: Sublingual; ke1 19:10 Follow up: Pain 2/10 Adult; Response: Pain is decreased ke1 20:46 Drug: Metoprolol TARTRATE 50 mg Route: PO; ke1 21:26 Drug: Lovenox (enoxaparin) 1 mg/kg Route: Sub-Q; Site: left lower abdomen; ke1 Disposition Summary: 04/02/22 20:09 Transfer Ordered Transfer Location: [facility] rn Reason: Higher level of care rn Condition: Stable(04/02/22 20:09) rn Problem: new(04/02/22 20:09) rn Symptoms: have improved(04/02/22 20:09) rn Accepting Physician: (04/03/22 00:30) [email or web address] Diagnosis - Subsequent non-ST elevation (NSTEMI) myocardial infarction(04/02/22 20:09) rn - Chest pain, unspecified(04/02/22 20:09) rn Forms: - Medication Reconciliation Form rn - SBAR form rn Signatures: Dispatcher [employer] EDTera Wagner MD MD rn Lewis, Lynsay, RN RN ll1 Valencia Maciel, RN RN ke1 Mariluz Kaur, RN RN kc6 Kirsten Pinedo, RN RN db James Davis MD MD rt Corrections: (The following items were deleted from the chart) 20: 19:52 Inpatient Admission rn rn : 19:52 Gnee Luciano rn rn : 19:52 Telemetry/MedSurg (Inpatient) rn rn : 19:52 Stable rn rn : 19:52 new rn rn : 19:52 have improved rn rn 20: 19:52 Standard rn rn 20: 19:52 rn rn 20: 19:52 Subsequent non-ST elevation (NSTEMI) myocardial infarction rn rn : 19:52 Chest pain, unspecified rn rn 04/03 00:30 04/02 20:09 rn ke1
[2022-04-02] MEDS ORDERED: METOPROLOL TAR 50 MG TAB ONE (20:45)
[2022-04-02 20:58] LABS: SARS-CoV-2 Antigen Rapid Res Negative (Negative)
[2022-04-02] MEDS ORDERED: ENOXAPARIN 80 MG/0.8 ML SQ ONE (21:22)
[2022-04-03 00:58] VITALS: O2SAT 100
[2022-04-03 01:04] VITALS: BP 140/52; TEMP 98.1
--- NOTE | 2022-04-04 16:34 | EKG ---
Test Date: 2022-04-02 Test Time: 18:43:02 Vacuum Spindle Sander: AMADO MEASUREMENT RESULTS: Intervals: Rate: 67 WI: 244 QRSD: 96 QT: 446 QTc: 471 Cannon: P: 20 WI: 244 QRS: 44 T: 134 INTERPRETIVE STATEMENTS: Sinus rhythm with 1st degree AV block Marked ST abnormality, possible lateral subendocardial injury Abnormal ECG No previous ECG available for comparison Electronically Signed On 04-04-22 16:33:02 LAST TURNER by Bunny Gilliam
== END 2022-04-03 00:30 | disposition short-term general hospital (02) ==
LOC: ER 18:16
DX: I22.2 Subsequent non-ST elevation (NSTEMI) myocardial infarction (principal); I21.9 Acute myocardial infarction, unspecified; Z20.822 Contact with and (suspected) exposure to COVID-19; I10 Essential (primary) hypertension
CPT/HCPCS: 36415; 71045; 80048; 84484; 85025; 87811; 93005; 96372; 99285